=== PATIENT | female | born 1990 | race Two or more races ===

== ENCOUNTER 2024-02-12 21:19 | Emergency (ER) | payer OTHER, SELFPAY ==
[2024-02-12 21:31] VITALS: BP 116/65
[2024-02-12 22:20] LABS: % Basophils 0.7 % (0-2); % Eosinophils 0.8 % (0-6); % Immature Granulocytes 0.2 % (0-0.5); % Lymphocytes 23.7 % (20.5-51.1); % Monocytes 5.5 % (1.7-9.3); % Neutrophils 69.1 % (42.2-75.2); Absolute Basophils 0.1 10^3/uL (0-0.2); Absolute Eosinophils 0.1 10^3/uL (0-0.7); Absolute Lymphocytes 2.9 10^3/uL (1.2-3.4); Absolute Monocytes 0.7 10^3/uL (0.1-0.6); Absolute Neutrophils 8.4 10^3/uL (1.4-6.5); Hemoglobin 9.1 g/dL (12.0-16.0); Mean Corp Hgb Conc. 31.4 g/dL (33.0-37.0); Mean Corpuscular Hgb 21.7 pg (27.0-31.0); Mean Platelet Volume 8.1 fL (7.4-10.4); Nucleated Red Blood Cells % 0 %; Platelet Count 388 10^3/uL (130-400); Red Cell Dist. Width 16.1 % (11.5-14.5); White Blood Cell Count 12.2 10^3/uL (4.8-10.8)
[2024-02-12 22:32] LABS: HCG, Serum Qualitative Screen Negative
[2024-02-12 22:36] LABS: ALT (SGPT) 22 U/L (0-35); AST (SGOT) 21 U/L (14-36); Albumin 4.3 g/dl (3.5-5.0); Alkaline Phosphatase 79 U/L (38-126); Blood Urea Nitrogen 12 mg/dl (7-17); Carbon Dioxide 24 mmol/L (22-30); Chloride 108 mmol/L (98-107); Glucose 103 mg/dl (70-99); Potassium 4.1 mmol/L (3.5-5.1); Sodium 136 mmol/L (135-145); Total Bilirubin 0.3 mg/dl (0.2-1.3); Total Protein 6.9 g/dl (6.3-8.2); eGFR > 60.00
--- NOTE | 2024-02-13 01:35 | ED.GENMED ---
History of Present Illness
General
Chief Complaint: Headache
Source: patient
Exam Limitations: none
Time Seen by Provider: 02/13/24 00:41
Travel History
Have you had any contact with someone who has COVID-19?: No
Do you have any symptoms of coronavirus? Fever > 100 degrees, chills, cough, shortness of breath, sore throat, loss of taste or smell, muscle aches, or headache?: No
History of Present Illness
History of Present Illness:
This is a 33 year old female that comes in with c/o headache. States that she had a headache that is all over. States that this started today a little and then she did some work outside and went into make dinner. States that she made dinner and the
tayo got worse. State that she has never had pain this bad and it was a 10/10. States that she felt slightly SOB with the pain, nauseated and vomited X 2. States that she also felt dizzy with the headache. Denies any fever, chills, chest pain,
abd pain, diarrhea, urinary burning.
Past History
Past History
ED Past Medical History: Hypercholesterolemia
ED Past Surgical History:
Social History
Tobacco: Non-smoker
Alcohol: None
Personal:
Living: with family
Review of Systems
Review of Systems
All Other Systems: ROS reviewed and negative except as documented in HPI and ROS
Constitutional: Reports no symptoms; Denies fever or chills
EENT: Reports no symptoms
Respiratory: Reports trouble breathing (with the pain); Denies cough
Cardiac: Reports no symptoms; Denies chest pain
ABD/GI: Reports nausea and vomiting; Denies abdominal pain or diarrhea
: Reports no symptoms; Denies dysuria, frequency or urgency
Musculoskeletal: Reports no symptoms
Skin: Reports no symptoms
Neurological: Reports dizzy and headache
Psychiatric: Reports no symptoms
Phy Exam
General Physical Exam
General Presentation: well appearing and no apparent distress
General age: appears stated age
General Skin: warm and dry
General Habitus: normal
General Mental: alert
General Hydration: dry mucous membranes
ENT Exam
ENT Exam: TM's normal, pharynx normal and neck supple
Eye Exam
Eye Exam: EOMI
Cardiovascular Exam
Cardiovascular Exam: regular rate/rhythm, no edema, no murmur and normal peripheral pulses
Pulmonary Exam
Pulmonary Exam: lungs clear, no respiratory distress, no rales, chest non tender, no crackles, no rhonchi, no wheezing and no cough
Gastrointestinal Exam
Gastrointestinal Exam: normal bowel sounds, non tender, soft, no organomegaly, no pulsatile mass and non distended
Musculoskeletal Exam
Musculoskeletal Exam: full ROM and no edema
Skin Exam
Skin Exam: normal color, warm/dry, no rash and no petechia
Psychiatric Exam
Psychiatric Exam: normal mood/affect
Course
Orders/Labs/Results
Orders:
Orders
02/12/24 21:42
Electrocardiogram (*1) Urgent
Reason for Study: Syncope
CT Head W/o Iv Contrast Urgent
Comment:
Reason For Exam: fall, head ache, N/v
02/12/24 21:43
EKG- Treatment ONCE
Test Result ONCE
02/12/24 21:48
Cervical Spine wo Contrast CT [CT Cervical Spine W/o Iv Contr] Urgent
Comment:
Reason For Exam: fall, head and neck pain
02/12/24 22:14
Complete Blood Count/With Diff Urgent
Comprehensive Metabolic Panel Urgent
HCG, Serum Qualitative Screen Urgent
02/13/24 01:35
0.9% Sodium Chloride 500 ml [Nss] 500 ml IV BOLUS
Acetaminophen [Tylenol] 1,000 mg PO NOW STA
Ketorolac [Toradol] 30 mg IV NOW STA
02/13/24 02:37
Urinalysis Reflex To Culture Urgent
Date Specimen was Collected: 02/13/24
Time Specimen was Collected: 02:20
Abnormal Lab Results
02/12/24 02/13/24
22:14 02:37
WBC 12.2 H 10^3/uL
(4.8-10.8)
Hgb 9.1 L g/dL
(12.0-16.0)
Hct 29.0 L %
(37.0-47.0)
MCV 69.0 L fL
(81.0-99.0)
MCH 21.7 L pg
(27.0-31.0)
MCHC 31.4 L g/dL
(33.0-37.0)
RDW 16.1 H %
(11.5-14.5)
Absolute Neuts (auto) 8.4 H 10^3/uL
(1.4-6.5)
Absolute Monos (auto) 0.7 H 10^3/uL
(0.1-0.6)
Chloride 108 H mmol/L
(98-107)
Creatinine 0.5 L mg/dL
(0.6-1.0)
Glucose 103 H mg/dl
(70-99)
Urine Ketones 2+ A
(Negative)
02/12/24 22:14
02/12/24 22:14
Leukocytosis, H/H slightly low Anemia, glucose nonfasting. HCG negative. Urine negative for infection.
Vital Signs
Initial and Last Documented VS:
Initial Vital Signs
Temp Pulse Resp BP Pulse Ox
98.1 F 89 18 116/65 98
02/12/24 21:31 02/12/24 21:31 02/12/24 21:31 02/12/24 21:31 02/12/24 21:31
Last Documented Vital Signs
Temp Pulse Resp BP Pulse Ox
98.1 F 89 18 116/65 98
02/12/24 21:31 02/12/24 21:31 02/12/24 21:31 02/12/24 21:31 02/12/24 21:31
MDM/Problems Addressed
Differential Diagnosis Includes:
Headache, Migraine
MDM/Problems Addressed:
This is a 33 year old female that comes in with c/o headache. States that she has never had a headache like this and it is all over her head.
Will check labs, CT scan and medication for pain.
Back into see patient. Explained that the CT of her head is normal and the CT of the cervical spine shows that she has a bone spur. Patient states that she is feeling better. Will have patient follow up with Orthopedic home theater specialist. Increase her
water intake to 8-8oz glasses daily. Tylenol or Ibuprofen for headache pain. Return with any concerns.
Chronic conditions affecting care:
NA
Acute Exacerbation and/or Progression of Chronic Illness:
NA
*Radiology
Radiology exam reviewed: radiology read reviewed (CT head-NO CT evidence for acute intracranial hemorrhage, calvarial fracture, or scalp soft tissue hematoma. CT cervical spine-Loss of the normal cervical lordosis with a moderate kyphosis at
C5/C6. Small to moderate-sized central disc-osteophyte complex at C5/C6 causing mild spinal cord ) and other (CT cont- compression and central canal stenosis. No CT evidence for acute fracture in the cervical spine. )
*EKG
Interpreted by ED Provider?: Yes
Heart Rate: 88
Rate: normal
Rhythm: sinus arrhythmia
Townsend: normal axis
Interval: normal interval
QRS Pattern: normal QRS
Ischemia: no ischemia
*Human Resources Leader Interpretation
Rate: Human Resources Leader- N/A
*Critical Care Note
Total Time (30-74mins, 75-104mins- exclusive of procedures): Not Applicable
ED Attending Note
-
Portions of this chart may have been created with voice recognition software.� Occasional wrong word or��sound alike� substitutions may have occurred due to the inherent limitations of voice recognition software.
Discharge Plan
Departure
Patient Disposition: Home (Routine Discharge)
Date of Disposition: 02/13/24
Time of Disposition: :
Patient with high blood pressure during this ER visit?: No
Condition: Good
Covid-19: Not Applicable
Discharge Problem:
Headache
Instructions: Headache, Adult (DC)
Prescriptions:
No Action
nitrofurantoin monohyd/m-cryst [Macrobid] 100 mg capsule
100 mg PO BID
Referrals:
Fabiano Short MD [Active] - Call in 1-3 days for appt
Xena Sears MD [Family Provider] - Follow up in 2-3 days
Activity Restrictions/Additional Instructions:
As discussed, your blood work shows you are a little anemic. Please follow up with the family doctor for further evaluation. Your CT of the head is normal and the CT of the Cervical spine shows that there is a bone spur C5/C6. You have been given
the name of an Orthopedic spinal specialist for further evaluation. You may take Tylenol 1000mg every 6 hours for pain and Ibuprofen 600mg every 6 hours with food for pain. IF YOU HAVE ANY OTHER CONCERNS PLEASE RETURN TO THE EMERGENCY ROOM.
Interventions
Interventions:
*Risk Screen - Suicide Last Done: 02/12/24 21:31
*General Assessment Last Done: 02/12/24 21:31
*Neglect/Abuse Screening Last Done: 02/12/24 21:31
ED- Fall Risk Assessment Last Done: 02/13/24 00:41
*ED COVID-19 Vaccine History Last Done: 02/13/24 00:41
ED- Neurological Assessment Last Done: 02/13/24 00:41
Discharge Date and Time
Print Language: ARABIC
[2024-02-13] MEDS: TORADOL 30 MG IV (02:34)
[2024-02-13] MEDS: TYLENOL 1000 MG PO (02:34)
[2024-02-13] MEDS: NSS 500 IV (02:35)
[2024-02-13 03:10] LABS: Urine Albumin Negative (Neg - Trace); Urine Bilirubin Negative (Negative); Urine Character Clear (Clear); Urine Color Yellow; Urine Glucose Negative (Negative); Urine Ketone 2+ (Negative); Urine Leukocyte Negative (Negative); Urine Nitrite Negative (Negative); Urine Occult Blood Negative (Negative); Urine Urobilinogen Negative (Neg - 1+)
== END 2024-02-13 04:47 | disposition home or self-care (01) ==
LOC: EMR 21:19
PROVIDERS: Clinical Nurse Specialist Family Health; Emergency Medicine; EMERGENCY PHYSICIAN Emergency Medicine; FAMILY PHYSICIAN Family Medicine
DX: R51.9 Headache, unspecified (principal); W19.XXXA Unspecified fall, initial encounter
CPT/HCPCS: 99285; 96374; 96361; 70450; 72125; 80053; 81003; 84703; 85025; 93005

== ENCOUNTER 2025-01-19 11:33 | Emergency (ER) | payer OTHER, SELFPAY ==
[2025-01-19 11:47] VITALS: BP 97/57
[2025-01-19 12:20] LABS: % Basophils 0.8 % (0-2); % Eosinophils 1.8 % (0-6); % Immature Granulocytes 0.1 % (0-0.5); % Lymphocytes 31.5 % (20.5-51.1); % Monocytes 5.7 % (1.7-9.3); % Neutrophils 60.1 % (42.2-75.2); Absolute Basophils 0.1 10^3/uL (0-0.2); Absolute Eosinophils 0.1 10^3/uL (0-0.7); Absolute Lymphocytes 2.3 10^3/uL (1.2-3.4); Absolute Monocytes 0.4 10^3/uL (0.1-0.6); Absolute Neutrophils 4.4 10^3/uL (1.4-6.5); Hematocrit 36.4 % (37.0-47.0); Mean Corpuscular Hgb 26.8 pg (27.0-31.0); Mean Corpuscular Volume 81.3 fL (81.0-99.0); Mean Platelet Volume 8.5 fL (7.4-10.4); Nucleated Red Blood Cells % 0 %; Platelet Count 300 10^3/uL (130-400); Red Blood Cell Count 4.48 10^6/uL (4.20-5.40); Red Cell Dist. Width 13.3 % (11.5-14.5); White Blood Cell Count 7.3 10^3/uL (4.8-10.8)
[2025-01-19 12:39] LABS: ALT (SGPT) 20 U/L (0-35); AST (SGOT) 20 U/L (14-36); Albumin 4.3 g/dl (3.5-5.0); Alkaline Phosphatase 78 U/L (38-126); Blood Urea Nitrogen 12 mg/dl (7-17); Calcium 9.3 mg/dl (8.4-10.2); Carbon Dioxide 23 mmol/L (22-30); Chloride 108 mmol/L (98-107); Glucose 81 mg/dl (70-99); Potassium 4.4 mmol/L (3.5-5.1); Sodium 140 mmol/L (135-145); Total Bilirubin 0.7 mg/dl (0.2-1.3); Total Protein 6.6 g/dl (6.3-8.2); eGFR > 60.00
[2025-01-19 12:40] LABS: Troponin I < 0.012 ng/ml
[2025-01-19 12:46] LABS: Lipase 144 U/L (23-300)
--- NOTE | 2025-01-19 14:08 | ED.GENMED ---
History of Present Illness
<Pastor Mcintosh MD - Last Filed: 01/20/25 06:12>
General
Chief Complaint: Blood Pressure Problem
Source: patient
Exam Limitations: none
Time Seen by Provider: 01/19/25 13:49
Nursing documentation reviewed up to this point in time: agreed with
History of Present Illness
History of Present Illness:
Patient presents to ED secondary to persistent intermittent nausea and vomiting sensation with any small meals over the past 1 month. Today, patient also started to experience headache along with low blood pressure. Patient's with some history is
significant [place] 8 [place]. Since then, patient has had intermittent ongoing symptoms, with approximately 40 kg weight loss. Patient has spoken with her primary care physician who provided patient with
phone number for local bariatric surgeon for consultation.
Past History
<Pastor Mcintosh MD - Last Filed: 01/20/25 06:12>
Past History
ED Past Medical History: Hypercholesterolemia
ED Past Surgical History:
Social History
Tobacco: Non-smoker
Alcohol: None
Personal:
Living: with family
Review of Systems
<Pastor Mcintosh MD - Last Filed: 01/20/25 06:12>
Review of Systems
Allergies reviewed?: Yes
All Other Systems: ROS reviewed and negative except as documented in HPI and ROS
Constitutional: Reports no symptoms; Denies fever
Respiratory: Reports no symptoms
Cardiac: Reports no symptoms
ABD/GI: Reports abdominal pain, nausea and vomiting; Denies diarrhea
Musculoskeletal: Reports no symptoms
Skin: Reports no symptoms
Neurological: Reports no symptoms
Phy Exam
<Pastor Mcintosh MD - Last Filed: 01/20/25 06:12>
Physical Exam
Physical Exam:
Physical Exam
General: no apparent distress, not acutely ill. afebrile
Head: nc/at. eomi
Neck: supple. normal range of motion.
Heart: s1/s2 regular rate and rhythm
Lungs: no acute respiratory distress. clear bilaterally
Abdomen: normal bowel sounds. not tender.
Neuro: alert and oriented x 3. no focal neurological deficits
Skin: no rash
Psychiatric: well kept. interactive and cooperative
Extremities: no edema. no calf tenderness.
Course
<Pastor Mcintosh MD - Last Filed: 01/20/25 06:12>
Orders/Labs/Results
Orders:
Orders
01/19/25 11:50
ECG [Electrocardiogram (*1)] Urgent
Reason for Study: Chest Pain
01/19/25 11:51
EKG- Treatment ONCE
01/19/25 12:04
Complete Blood Count/With Diff Urgent
Comprehensive Metabolic Panel Urgent
HCG, Serum Qualitative Screen Urgent
Comment: ADD ON
Lipase Urgent
Troponin I Urgent
01/19/25 14:07
CT Abd/pel W Iv And Oral Contr Urgent
Comment:
Reason For Exam: abd pain, s/p bariatric surgery
0.9% Sodium Chloride 1000 ml [Nss] 1,000 ml IV BOLUS
Acetaminophen [Tylenol] 1,000 mg PO NOW STA
Iohexol [Omnipaque] See Protocol PO NOW STA
01/19/25 14:44
Add On- LAB Urgent
Tests Added?: serum B-HCG, qualitative
Abnormal Lab Results
01/19/25
12:04
Hct 36.4 L %
(37.0-47.0)
MCH 26.8 L pg
(27.0-31.0)
Chloride 108 H mmol/L
(98-107)
Creatinine 0.5 L mg/dL
(0.6-1.0)
01/19/25 12:04
01/19/25 12:04
Vital Signs
Initial and Last Documented VS:
Initial Vital Signs
Temp Pulse Resp BP Pulse Ox
98.3 F 71 18 97/57 100
01/19/25 11:47 01/19/25 11:47 01/19/25 11:47 01/19/25 11:47 01/19/25 11:47
Last Documented Vital Signs
Temp Pulse Resp BP Pulse Ox
98.3 F 64 16 101/61 98
01/19/25 11:47 01/19/25 14:16 01/19/25 14:16 01/19/25 14:16 01/19/25 14:16
<Carson Encinas, DO - Last Filed: 01/19/25 18:09>
Orders/Labs/Results
Orders:
Orders
01/19/25 11:50
ECG [Electrocardiogram (*1)] Urgent
Reason for Study: Chest Pain
01/19/25 11:51
EKG- Treatment ONCE
01/19/25 12:04
Complete Blood Count/With Diff Urgent
Comprehensive Metabolic Panel Urgent
HCG, Serum Qualitative Screen Urgent
Comment: ADD ON
Lipase Urgent
Troponin I Urgent
01/19/25 14:07
CT Abd/pel W Iv And Oral Contr Urgent
Comment:
Reason For Exam: abd pain, s/p bariatric surgery
0.9% Sodium Chloride 1000 ml [Nss] 1,000 ml IV BOLUS
Acetaminophen [Tylenol] 1,000 mg PO NOW STA
Iohexol [Omnipaque] See Protocol PO NOW STA
01/19/25 14:44
Add On- LAB Urgent
Tests Added?: serum B-HCG, qualitative
Abnormal Lab Results
01/19/25
12:04
Hct 36.4 L %
(37.0-47.0)
MCH 26.8 L pg
(27.0-31.0)
Chloride 108 H mmol/L
(98-107)
Creatinine 0.5 L mg/dL
(0.6-1.0)
01/19/25 12:04
01/19/25 12:04
Vital Signs
Initial and Last Documented VS:
Initial Vital Signs
Temp Pulse Resp BP Pulse Ox
98.3 F 71 18 97/57 100
01/19/25 11:47 01/19/25 11:47 01/19/25 11:47 01/19/25 11:47 01/19/25 11:47
Last Documented Vital Signs
Temp Pulse Resp BP Pulse Ox
98.3 F 64 16 101/61 98
01/19/25 11:47 01/19/25 14:16 01/19/25 14:16 01/19/25 14:16 01/19/25 14:16
<Pastor Mcintosh MD - Last Filed: 01/20/25 06:12>
*Critical Care Note
Total Time (30-74mins, 75-104mins- exclusive of procedures): Not Applicable
<Carson Encinas DO - Last Filed: 01/19/25 18:09>
Update Note
Update Note:
I reviewed CT report and discussed findings with patient. She states she has been having good bowel movements but I suggest that she try MiraLAX. I also informed her of the hydrocele like lesion in the right pelvis and gave her urology follow-up.
She is also to follow-up with gastroenterology. There is no sign of obstruction on CT with oral and IV contrast.
ED Attending Note
<Pastor Mcintosh MD - Last Filed: 01/20/25 06:12>
-
Portions of this chart may have been created with voice recognition software.� Occasional wrong word or��sound alike� substitutions may have occurred due to the inherent limitations of voice recognition software.
Discharge Plan
Departure
Patient Disposition: Home (Routine Discharge)
Date of Disposition: 01/19/25
Time of Disposition: 18:04
Patient with high blood pressure during this ER visit?: Yes
Discharge Problem:
Abdominal pain
Instructions: BLOOD PRESSURE
Prescriptions:
No Action
nitrofurantoin monohyd/m-cryst [Macrobid] 100 mg capsule
100 mg PO BID
Referrals:
Kinza Godfrey MD [Active] - Next open appointment
Juan C Phelps Jr., MD [Active] - Next open appointment
Xena Sears MD [Family Provider] -
Activity Restrictions/Additional Instructions:
The cause of your abdominal pain is unclear. Your white blood cell count is normal. Other basic labs are normal. You are not . The CAT scan shows no sign of an obstruction. 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
noted. Since the radiologist does note an increased amount of stool, I recommend that you try [id number] MiraLAX as well. I am giving the contact information for a heat treater helper to follow-up with, . The radiologist also noted,
'Confluent bandlike areas of hypoattenuation within the posterior segment right hepatic lobe. Findings may reflect areas of transient hepatic attenuation differences, infarcts, atypical fatty infiltration or areas of congestion or scarring. Consider
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
urologist, Dr. Phelps, to follow-up with his well.
Interventions
Interventions:
*Risk Screen - Suicide Last Done: 01/19/25 18:20
*Neglect/Abuse Screening Last Done: 01/19/25 18:20
*Nursing Disposition Last Done: 01/19/25 18:20
ED- Cardiac Assessment Last Done: 01/19/25 14:16
ED- Neurological Assessment Last Done: 01/19/25 14:16
ED- Pulmonary Assessment Last Done: 01/19/25 14:16
Discharge Date and Time
Discharge Date/Time: 01/19/25 18:20
Print Language: MACEDONIAN
[2025-01-19 14:16] VITALS: BP 101/61
[2025-01-19] MEDS: NSS 1000 IV (14:29)
[2025-01-19] MEDS: TYLENOL 1000 MG PO (14:31)
[2025-01-19] MEDS: OMNIPAQUE 50 ML PO (14:32)
--- NOTE | 2025-01-19 15:15 | EDRN ---
Pt moved to results waiting area, report given to JOSE Bolaños.
[2025-01-19 15:57] LABS: HCG, Serum Qualitative Screen Negative
== END 2025-01-19 18:20 | disposition home or self-care (01) ==
LOC: EMR 11:33
PROVIDERS: Emergency Medicine; EMERGENCY PHYSICIAN Emergency Medicine; FAMILY PHYSICIAN Family Medicine
DX: R10.9 Unspecified abdominal pain (principal); E78.00 Pure hypercholesterolemia, unspecified; Z98.84 Bariatric surgery status
CPT/HCPCS: 99284; 96360; 96361; 74177; 80053; 83690; 84484; 84703; 85025; 93005; Q9967